=== PATIENT | female | born 1950 | race Caucasian/White ===

== ENCOUNTER → 2017-09-08 | Outpatient (CLI) | payer MEDICARE ==
[~2017-09-08] MED LIST: ALBU8.5H IH; AZEL137S NS; BECL8.7H NS; BUDE10.2 INH; CHOL200022 PO; CICPT NS; HYDR10TA3 PO; LEV125 PO; LEVO-3 PO; LEVO50TA86 PO; METR45CR9 TP; MOMR ENA; MONT10TA4 PO; MV,I66.7 PO; OM-31CAP12 PO
[2017-09-08 09:06] LABS: PLATELET COUNT, AUTOMATED 194 K/uL (150-450)
[2017-09-08 09:36] LABS: LDL CHOLESTEROL 122 mg/dl
== END ==
LOC: LAB 08:36
PROVIDERS: ATTEND Internal Medicine
DX: E03.9 Hypothyroidism, unspecified (principal); R03.0 Elevated blood-pressure reading, without diagnosis of hypertension; J45.909 Unspecified asthma, uncomplicated
CPT/HCPCS: 36415; 82040; 82247; 82310; 82374; 82435; 82465; 82565; 82947; 83718; 84075; 84132; 84155; 84295; 84439; 84443; 84450; 84460; 84478; 84481; 84520; 85025

== ENCOUNTER → 2017-09-21 | Outpatient (CLI) | payer MEDICARE ==
--- NOTE | 2017-09-22 16:21 | RADIOLOGY IMAGING REPORT ---
FACILITY: [facility] - [place] PATIENT NAME: PASCALE MORAES : [id number] MR: [id number] V: [id number] EXAM DATE: [id number] ORDERING PHYSICIAN: RAMY BENTON TECHNOLOGIST: Zenia Lara PROCEDURE:BILATERAL DIGITAL SCREENING MAMMOGRAM WITH CAD ASSISTED INTERPRETATION & 3D TOMOSYNTHESIS COMPARISON:Prior mammograms 09/26/15, 09/25/13. INDICATIONS:SCREENING FINDINGS: Moderately heterogeneous fibroglandular tissue is seen throughout the breasts. The parenchymal pattern has remained stable allowing for difference in mammographic technique & patient positioning. There is no evidence of malignant appearing mass, malignant appearing calcifications or other secondary sign of malignancy in either breast. DIAGNOSTIC CATEGORY 1--NEGATIVE. RECOMMENDATIONS: ROUTINE MAMMOGRAM AND CLINICAL EVALUATION. IMPRESSION: BIRADS 1: Negative No significant abnormality is seen. Dictated by: Katherine Flores M.D. on 09/21/2017 at 16:12 Transcribed by: WAYNE on 09/22/2017 at 8:45 Approved by: Katherine Flores M.D. on 09/22/2017 at 16:21 [facility]
== END ==
LOC: MAMO 01:20
PROVIDERS: ATTEND Internal Medicine
DX: Z12.31 Encounter for screening mammogram for malignant neoplasm of breast (principal)
CPT/HCPCS: 77063; 77067

== ENCOUNTER → 2018-01-24 | Outpatient (CLI) | payer MEDICARE ==
--- NOTE | 2018-01-24 11:10 | RADIOLOGY IMAGING REPORT ---
FACILITY: [facility] - [place] PATIENT NAME: Kaitlynn Kimbrough : 1950 MR: [id number] V: [id number] EXAM DATE: ORDERING PHYSICIAN: RAMY BENTON TECHNOLOGIST: Location: [facility] Patient: Kaitlynn Kimbrough : 1950 Visit/Account:[id number] Date of Sevice: 01/24/2018 DEXA Scan Clinical history: Hypothyroidism, rosacea. Comparison: None available. LUMBAR SPINE: The bone mineral density (BMD) measured from L1-L4 correlates with a Z-score 4.9 and a T-score of 3.6 which is Normal as defined by the World Health Organization. The corresponding risk of fracture in the lumbar spine is Not increased compared with a young adult reference population. HIP: Bone mineral density (BMD) measured in the Left total hip region correlates with a Z-score 0.8 and a T-score of by 0.2 which is Normal as defined by the World Health Organization. The corresponding ris k of fracture in the hip is Not increased compared with a young adult reference population. T score left femoral neck -0.1 Bone mineral density (BMD) measured in the Femoral Neck region measures 1.020 g/cm2. Impression: 1. Lumbar spine: Normal. 2. Left Hip: Normal. 3. Femoral Neck: Bone Mineral Density is 1.020 g/cm2 The next DEXA scan of this patient should include the following sites: L1-L4 and the left hip. FRAX? WHO Fracture Risk Assessment Tool link: <http://www.shef.ac.uk/FRAX/tool.jsp?locationValue=9> PLEASE NOTE: 1) The World Health Organization defines low BMD as follows: T-score Normal > -1 Osteopenia < -1 and > -2.5 Osteoporosis < -2.5 without fractures Established osteoporosis < -2.5 with fractures 2) In general, you may wish to consider: Diagnosis Treatment Follow-up DEXA Normal BMD Prevention 2-3 years Osteopenia Prevention/therapy 1-2 years Osteoporosis Therapy Yearly 3) Fracture risk estimated from the T-score is more accurate for vertebral fractures (often spontane ous) than for hip fractures. Report Dictated By: Katherine Flores MD at 01/24/2018 11:04 AM Report E-Signed By: Katherine Flores MD at 01/24/2018 11:05 AM JAYLAN:CHAN
== END ==
LOC: RAD 01:36
PROVIDERS: ATTEND Internal Medicine
DX: J45.909 Unspecified asthma, uncomplicated (principal); E03.9 Hypothyroidism, unspecified; L71.9 Rosacea, unspecified
CPT/HCPCS: 36415; 77080; 84439; 84443; 84481

== ENCOUNTER → 2018-04-20 | Outpatient (CLI) | payer MEDICARE ==
[~2018-04-20] MED LIST changes: +CHOL200018 PO; -CHOL200022 PO; +HYDR-4225 PO; +METR60GE TP
== END ==
LOC: LAB 08:45
PROVIDERS: ATTEND Internal Medicine
DX: E05.40 Thyrotoxicosis factitia without thyrotoxic crisis or storm (principal); E05.90 Thyrotoxicosis, unspecified without thyrotoxic crisis or storm
CPT/HCPCS: 36415; 83519; 84432; 84439; 84443; 84445; 84481; 86376; 86800

== ENCOUNTER → 2018-05-02 | Outpatient (CLI) | payer MEDICARE ==
--- NOTE | 2018-05-02 15:49 | RADIOLOGY IMAGING REPORT ---
FACILITY: [facility] PATIENT NAME: Kaitlynn Kimbrough : 1950 MR: [id number] V: [id number] EXAM DATE: ORDERING PHYSICIAN: RAMY BENTON TECHNOLOGIST: Location: [facility] [place] Patient: Kaitlynn Kimbrough : 1950 Visit/Account:[id number] Date of Sevice: 05/02/2018 THYROID HISTORY: Hyperthyroidism after been off Synthroid since September 2017 COMPARISON: None. FINDINGS: SIZE: Right lobe: 5.4 x 1.4 x 2.1 cm Left lobe: 5.6 x 1.1 x 1.8 cm Isthmus: 6.6 mm PARENCHYMA: Heterogeneous NODULES: Right lobe: * In the mid right lobe there is a 1 cm spongiform well-circumscribed hypoechoic nodule. * In the mid right lobe there is also a 1.5 cm spongiform well-circumscribed hypoechoic nodule Left lobe: * In the superior pole of the left lobe there is a solid hypoechoic nodule with mildly irregular mar gins measuring 1.2 cm in diameter. In the inferior left lobe there is a 8 mm spongiform nodule. In the mid left lobe there is a 6 mm well-circumscribed hypoechoic nodule Isthmus: * None discrete. VASCULARITY: Within normal limits. ADDITIONAL FINDINGS: None. IMPRESSION: The superior pole the left lobe there is a solid hypoechoic nodules mildly irregular margins measurin g 1.2 centers in diameter for which ultrasound-guided fine-needle aspiration is recommended REFERENCE: 2015 [employer] Management Guidelines for Adult Patients with Thyroid Nodules and D ifferentiated Thyroid Cancer: The [place] [employer] Guidelines Task Force on Thyroid Nodul es and Differentiated Thyroid Cancer. SONOGRAPHIC PATTERNS: * Benign: Purely cystic nodules (no solid component); estimated risk of malignancy <1 percent; no bi opsy recommended. * Very Low Suspicion: Spongiform or partially cystic nodules without any of the sonographic features described in low, intermediate, or high suspicion patterns; estimated risk of malignancy <3 percent; consider FNA at > 2 cm (Observation without FNA is also a reasonable option). * Low Suspicion: Isoechoic or hyperechoic solid nodule, or partially cystic nodule with eccentric so lid areas, without microcalcification, irregular margin or ETE (extra-thyroidal extension), or taller than wide shape; estimated risk of malignancy 5-10 percent; recommend FNA at >1.5 cm. * Intermediate Suspicion: Hypoechoic solid nodule with smooth margins without microcalcifications, E TE (extra-thyroidal extension), or taller than wide shape; estimated risk of malignancy 10-20 percent ; recommend FNA at > 1 cm. * High Suspicion: Solid hypoechoic nodule or solid hypoechoic component of a partially cystic nodule with one or more of the following features: irregular margins (infiltrative, microlobulated), microc alcifications, taller than wide shape, rim calcifications with small extrusive soft tissue component, evidence of ETE (extra-thyroidal extension); estimated risk of malignancy >70-90 percent; recommend FNA at > 1 cm. NOTES: * Although a sonographically suspicious subcentimeter thyroid nodule without evidence of extrathyroi papo extension or sonographically suspicious lymph nodes may be observed with close sonographic follow -up rather than pursuing immediate FNA, patient age and preference may modify decision-making. A > 50% interval increase in nodule volume and/or development of new suspicious sonographic features are felt to be a valid reasons for potential re-aspiration of a nodule previously shown to have benig n FNA cytology. Report Dictated By: Katherine Flores MD at 05/02/2018 3:27 PM Report E-Signed By: Katherine Flores MD at 05/02/2018 3:43 PM WSN:[email or web address]
== END ==
LOC: US 00:45
PROVIDERS: ATTEND Internal Medicine
DX: E04.1 Nontoxic single thyroid nodule (principal)
CPT/HCPCS: 76536

== ENCOUNTER → 2018-06-09 | Outpatient (CLI) | payer MEDICARE | LOC: LAB 08:29 | PROVIDERS: ATTEND Internal Medicine | DX: E05.90 Thyrotoxicosis, unspecified without thyrotoxic crisis or storm (principal) | CPT/HCPCS: 36415; 84439; 84443; 84481 ==

== ENCOUNTER → 2018-06-19 | Outpatient (CLI) | payer MEDICARE ==
--- NOTE | 2018-06-20 14:37 | RADIOLOGY IMAGING REPORT ---
FACILITY: [facility] PATIENT NAME: Kaitlynn Kimbrough : 1950 MR: [id number] V: [id number] EXAM DATE: ORDERING PHYSICIAN: RAMY BENTON TECHNOLOGIST: Location: [facility] Patient: Kaitlynn Kimbrough : 1950 Visit/Account:[id number] Date of Sevice: 06/19/2018 NM THYROID UPTAKE - MULT. DE HISTORY: hyperthyroid TECHNIQUE: 372 microcuries I-123 were administered orally. Radioiodine uptake values were calculated at 24 hours following tracer administration. Gamma camera images were obtained of the neck in variou s orientations. COMPARISON: Thyroid ultrasound May 02, 2018 FINDINGS: Thyroid radioiodine uptake at 24 hours is 26.6% (normal range 15-40 %). Thyroid radioiodine uptake at six hours is 15.2% (normal range 5-15%) Size and shape: Normal. Homogeneity: Normal. Nodules: None evident. IMPRESSION: Normal 24-hour thyroid uptake of 26.6% Slightly elevated six hour thyroid uptake at 15.2% Report Dictated By: Katherine Flores MD at 06/20/2018 2:23 PM Report E-Signed By: Katherine Flores MD at 06/20/2018 2:33 PM WSN:CHAN
== END ==
LOC: NUC 03:57
PROVIDERS: ATTEND Internal Medicine
DX: E05.90 Thyrotoxicosis, unspecified without thyrotoxic crisis or storm (principal)
CPT/HCPCS: 78014; A9516

== ENCOUNTER → 2018-09-28 | Outpatient (CLI) | payer MEDICARE ==
[2018-09-28 09:16] LABS: PLATELET COUNT, AUTOMATED 193 K/uL (150-450)
[2018-09-28 10:14] LABS: LDL CHOLESTEROL 123 mg/dl
== END ==
LOC: LAB 08:45
PROVIDERS: ATTEND Internal Medicine
DX: Z00.00 Encounter for general adult medical examination without abnormal findings (principal); E05.90 Thyrotoxicosis, unspecified without thyrotoxic crisis or storm; R03.0 Elevated blood-pressure reading, without diagnosis of hypertension; E03.9 Hypothyroidism, unspecified; R79.9 Abnormal finding of blood chemistry, unspecified
CPT/HCPCS: 36415; 81001; 82040; 82247; 82310; 82374; 82435; 82465; 82565; 82728; 82947; 83540; 83550; 83718; 84075; 84132; 84155; 84295; 84439; 84443; 84450; 84460; 84478; 84481; 84520; 85025